=== PATIENT | female | born 1960 | race Two or more races ===

== ENCOUNTER 2023-08-01 05:20 | Day surgery (SDC) | payer OTHER | END 2023-08-01 12:35 | disposition home or self-care (01) | LOC: AMB-ENDOS 05:20 → CIR.AMB 13:00 | PROVIDERS: ATTEND Surgery | DX: K57.30 Diverticulosis of large intestine without perforation or abscess without bleeding (principal); D12.3 Benign neoplasm of transverse colon; K92.1 Melena; Z20.822 Contact with and (suspected) exposure to COVID-19 ==

== ENCOUNTER 2023-09-27 08:24 | Inpatient (IN) | payer OTHER ==
[~2023-09-27] VITALS: Ht 165.1 cm; Wt 77.1 kg
[2023-09-27] MEDS ORDERED: ATORVASTATIN CA10 MG PO (09:44)
[2023-09-27] MEDS ORDERED: HORIZANT300 MG PO (09:44)
[2023-09-27] MEDS ORDERED: D3-5000125 MCG PO (09:45)
[2023-09-27] MEDS ORDERED: CALTRATE 600+D1 EAC1 PO (09:45)
[2023-10-17] MEDS ORDERED: GABAPENTIN100 M2 (08:30)
[2023-10-17] MEDS ORDERED: VITAMIN D3250 MCG (08:30)
[2023-10-17 13:06] LABS: HEMATOCRIT 45.5 % (36.0-45.00); HEMOGLOBIN 14.8 g/dL (12.0-15.00); MEAN CORPUSCULAR HEMOGLOBIN 26.3 pg (27.00-32.0); MEAN CORPUSCULAR HGB CONC 32.5 g/dl (32.0-36.0); PLATELET COUNT 233 K/uL (150-450); RED BLOOD COUNT 5.61 M/uL (4.00-6.00); RED CELL DISTRIBUTION WIDTH 14.3 % (11.5-14.5)
[2023-10-17 13:42] LABS: ALBUMIN 3.5 gm/dL (3.4-5.0); CALCIUM 9.3 mg/dL (8.5-10.1); CREATININE SERUM 0.85 mg/dL (0.55-1.02); GFR 67.77; MAGNESIUM 2.1 mg/dL (1.8-2.4); PHOSPHOROUS 3.8 mg/dL (2.5-4.9); POTASSIUM 4.4 mEq/L (3.5-5.1)
[2023-10-18 06:55] LABS: CALCIUM 8.5 mg/dL (8.5-10.1); CREATININE SERUM 0.78 mg/dL (0.55-1.02); GFR 74.83; MAGNESIUM 2.1 mg/dL (1.8-2.4); POTASSIUM 3.82 mEq/L (3.5-5.1)
[2023-10-18 08:14] LABS: HEMATOCRIT 42.1 % (36.0-45.00); HEMOGLOBIN 13.9 g/dL (12.0-15.00); MEAN CELL VOLUME 81.7 fL (80.00-100.00); MEAN CORPUSCULAR HEMOGLOBIN 26.9 pg (27.00-32.0); MEAN CORPUSCULAR HGB CONC 32.9 g/dl (32.0-36.0); PLATELET COUNT 216 K/uL (150-450); RED BLOOD COUNT 5.15 M/uL (4.00-6.00); RED CELL DISTRIBUTION WIDTH 14.1 % (11.5-14.5)
[2023-10-21 08:10] LABS: HEMOGLOBIN 11.4 g/dL (12.0-15.00); MEAN CELL VOLUME 82.4 fL (80.00-100.00); MEAN CORPUSCULAR HEMOGLOBIN 26.8 pg (27.00-32.0); MEAN CORPUSCULAR HGB CONC 32.6 g/dl (32.0-36.0); PLATELET COUNT 223 K/uL (150-450); RED BLOOD COUNT 4.24 M/uL (4.00-6.00); RED CELL DISTRIBUTION WIDTH 13.9 % (11.5-14.5)
[2023-10-21 08:21] LABS: CALCIUM 9.1 mg/dL (8.5-10.1); CREATININE SERUM 0.75 mg/dL (0.55-1.02); GFR 78.3; POTASSIUM 4.96 mEq/L (3.5-5.1)
[2023-10-21] MEDS ORDERED: ACETAMINOPHEN500 M2 PO (10:06)
[2023-10-21] MEDS ORDERED: NEURONTIN300 MG PO (10:06)
== END 2023-10-21 11:58 | disposition home or self-care (01) | DRG 330 ==
LOC: SURH 10-17 05:00 → O/R 10-17 05:00 → SURG 10-17 09:00 → SURH 10-17 09:54
PROVIDERS: Surgery; ADMIT Surgery; ATTEND Surgery
PROC: 07BC4ZX Excision of Pelvis Lymphatic, Percutaneous Endoscopic Approach, Diagnostic (ICD-10-PCS; 2023-10-17)
PROC: 0DBU4ZZ Excision of Omentum, Percutaneous Endoscopic Approach (ICD-10-PCS; 2023-10-17)
PROC: 0DTF4ZZ Resection of Right Large Intestine, Percutaneous Endoscopic Approach (ICD-10-PCS; principal; 2023-10-17 09:45)
DX: D12.3 Benign neoplasm of transverse colon (principal); K57.32 Diverticulitis of large intestine without perforation or abscess without bleeding; K92.1 Melena